=== PATIENT | female | born 1975 | race Caucasian/White ===

== ENCOUNTER 2016-12-31 08:07 | Emergency (ER) | payer BC, OTHER ==
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
[2016-12-31 09:58] VITALS: BP 134/79
== END 2016-12-31 10:10 | disposition home or self-care (01) ==
LOC: ER 08:07
DX: G54.2 Cervical root disorders, not elsewhere classified (principal); M54.2 Cervicalgia; Z98.1 Arthrodesis status
CPT/HCPCS: 72125; 99283